=== PATIENT | female | born 2005 | race African-American/Black ===

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

== ENCOUNTER 2023-04-10 18:35 | Emergency (ER) | payer MEDICAID ==
[~2023-04-10] VITALS: Ht 160 cm; Wt 58.7 kg
--- NOTE | 2023-04-10 18:55 | ED GU-Female ---
General Chief Complaint: OB < 20 WEEKS Stated Complaint: 8 WEEKS / BLEEDING Nursing Triage Note: pt ambulates to rm 08 with c/o scant vaginal bleeding that started about 1700 tonight. pt reports she is approx 8 weeks , first . pt denies any pain or discomfort. Source: patient Exam Limitations: no limitations (KRYSTEN CALIXTO APRN) History of Present Illness Date Seen by Provider: Apr 10, 2023 Time Seen by Provider: 18:49 Initial Comments 17-year-old G2, P0 female at approximately 8 weeks and 4 days gestation presents to the ER with reports of vaginal bleeding starting today. She reports that it started out as light pink then has progressively darkened in color. She states that it has occurred approximately 5 times when wiping. Denies passing blood clots or heavy bleeding. Denies fever, abdominal pain, nausea, vomiting, vaginal discharge, dysuria. Last menstrual cycle was January 31. She reports that she had an ultrasound on March 25 that showed an intrauterine with a heartbeat at approximately 6 weeks 2 days. She reports that her previous ended in a miscarriage, states that she was only a couple weeks . (KRYSTEN CALIXTO APRN) Allergies and Home Medications Allergies Coded Allergies: No Known Drug Allergies (Unverified , 12/19/12) Patient Home Medication List Home Medication List Reviewed: Yes (KRYSTEN CALIXTO APRN) Acetaminophen/Codeine (Tylenol W/Codeine Elixir) 12.5 Ml Elix, 5 ML PO Q4H PRN Prescribed by: TERE PÉREZ on 12/19/122155 Cephalexin Hcl (Keflex Capsule) 250 Mg Cap, 250 MG PO Q6H Prescribed by: TERE PÉREZ on 12/19/122155 Clotrimazole (Clotrimazole) 1 % Cr, 45 GM VG DAILY Prescribed by: Krysten Grijalva on 04/10/232047 [[facility]] , (Reported) Entered as Reported by: ROCHELLE PINA on 12/19/121946 Review of Systems Review of Systems Constitutional: see HPI (KRYSTEN CALIXTO APRN) Past Duaacfc-Fqtqbd-Eipajp Hx Patient Social History Tobacco Use?: No Use of E-Cig and/or Vaping dev: No Substance use?: No Alcohol Use?: No (KRYSTEN CALIXTO APRN) Immunizations Up To Date Influenza Vaccine Up-to-Date: Yes; Up-to-Date (KRYSTEN CALIXTO APRN) Seasonal Allergies Seasonal Allergies: No (KRYSTEN CALIXTO APRN) Past Medical History Reproductive Disorders: No Sexually Transmitted Disease: No HIV/AIDS: No Adverse Reaction/Blood Tranf: No (KRYSTEN CALIXTO APRN) Family Medical History No Pertinent Family Hx (KRYSTEN CALIXTO APRN) Physical Exam Vital Signs Vital Signs - First Documented 04/10/23 18:44 Temp 36.0 Pulse 86 Resp 18 B/P (MAP) 114/86 (95) Pulse Ox 98 O2 Delivery Room Air (BRISEIDA,SMILEY K DO) Vital Signs Capillary Refill : Less Than 3 Seconds (KRYSTEN CALIXTO APRN) Height, Weight, BMI Height: '" Weight: lbs. oz. kg; 22.00 BMI Method: General Appearance: WD/WN, no apparent distress Neck: supple, normal inspection Cardiovascular: regular rate, rhythm Respiratory: lungs clear, normal breath sounds, no respiratory distress, no accessory muscle use Gastrointestinal: normal bowel sounds, non tender, soft Pelvic: normal external exam, no cerv. motion tender, no masses, discharge (Scant amount), vaginal bleeding (Small to moderate amount of blood in vaginal canal, no active bleeding), other (Os appears closed) Extremities: normal range of motion, normal inspection Neurologic/Psychiatric: alert, normal mood/affect Skin: normal color, warm/dry (KRYSTEN CALIXTO APRN) Progress/Results/Core Measures Suspected Sepsis SIRS Temperature: Pulse: 86 Respiratory Rate: 18 Laboratory Tests 04/10/23 19:00: White Blood Count 10.7 Blood Pressure 114 /86 Mean: 95 Laboratory Tests 04/10/23 19:00: Creatinine 0.67, Platelet Count 262, Total Bilirubin 1.0 (KRYSTEN CALIXTO APRN) Results/Orders Lab Results Laboratory Tests Test 04/10/23 18:45 04/10/23 19:00 04/10/23 19:30 Range/Units Urine Color YELLOW Urine Clarity CLEAR Urine pH 1.010 5-9 Urine Specific [place] 7.0 1.016-1.022 Urine Protein NEGATIVE NEGATIVE Urine Glucose (UA) NEGATIVE NEGATIVE Urine Ketones NEGATIVE NEGATIVE Urine Nitrite NEGATIVE NEGATIVE Urine Bilirubin NEGATIVE NEGATIVE Urine Urobilinogen 0.2 < = 1.0 MG/DL Urine Leukocyte Esterase NEGATIVE NEGATIVE Urine RBC (Auto) 1+ H NEGATIVE Urine RBC 5-10 H /HPF Urine WBC NONE /HPF Urine Squamous Epithelial Cells RARE /HPF Urine Crystals NONE /LPF Urine Bacteria NEGATIVE /HPF Urine Casts NONE /LPF Urine Mucus NEGATIVE /LPF Urine Culture Indicated NO White Blood Count 10.7 4.3-11.0 10^3/uL Red Blood Count 4.52 3.80-5.11 10^6/uL Hemoglobin 13.9 11.5-16.0 g/dL Hematocrit 41 35-52 % Mean Corpuscular Volume 90 80-99 fL Mean Corpuscular Hemoglobin 31 25-34 pg Mean Corpuscular Hemoglobin Concent 34 32-36 g/dL Red Cell Distribution Width 13.5 10.0-14.5 % Platelet Count 262 130-400 10^3/uL Mean Platelet Volume 10.6 9.0-12.2 fL Immature Granulocyte % (Auto) 0 % Neutrophils (%) (Auto) 56 42-75 % Lymphocytes (%) (Auto) 26 12-44 % Monocytes (%) (Auto) 8 0-12 % Eosinophils (%) (Auto) 8 0-10 % Basophils (%) (Auto) 1 0-10 % Neutrophils # (Auto) 6.0 1.8-7.8 10^3/uL Lymphocytes # (Auto) 2.8 1.0-4.0 10^3/uL Monocytes # (Auto) 0.9 0.0-1.0 10^3/uL Eosinophils # (Auto) 0.9 H 0.0-0.3 10^3/uL Basophils # (Auto) 0.1 0.0-0.1 10^3/uL Immature Granulocyte # (Auto) 0.0 0.0-0.1 10^3/uL Sodium Level 138 135-145 MMOL/L Potassium Level 3.1 L 3.6-5.0 MMOL/L Chloride Level 106 98-107 MMOL/L Carbon Dioxide Level 22 21-32 MMOL/L Anion Gap 10 5-14 MMOL/L Blood Urea Nitrogen 4 L 7-18 MG/DL Creatinine 0.67 0.60-1.30 MG/DL Estimat Glomerular Filtration Rate 129 BUN/Creatinine Ratio 6 Glucose Level 84 70-105 MG/DL Calcium Level 9.2 8.5-10.1 MG/DL Corrected Calcium 9.0 8.5-10.1 MG/DL Total Bilirubin 1.0 0.1-1.0 MG/DL Aspartate Amino Transf (AST/SGOT) 23 5-34 U/L Alanine Aminotransferase (ALT/SGPT) 32 0-55 U/L Alkaline Phosphatase 67 40-136 U/L Total Protein 7.0 6.4-8.2 GM/DL Albumin 4.3 3.2-4.5 GM/DL Human Chorionic Gonadotropin, Quant 69854 H <5 MIU/ML (BRISEIDA,SMILEY K DO) Medications Given in ED Current Medications Medications Dose Ordered Sig/Solomon Route Start Time Stop Time Status Last Admin Dose Admin Potassium Chloride 40 meq ONCE ONCE PO 04/10/23 20:15 04/10/23 20:16 DC 04/10/23 20:14 40 MEQ Rho Immune Globulin 300 mcg ONCE ONCE IM/IV 04/10/23 20:15 04/10/23 20:16 DC 04/10/23 20:43 300 MCG (BRISEIDA,SMILEY K DO) Vital Signs/I&O 04/10/23 04/10/23 18:44 20:58 Temp 36.0 Pulse 86 85 Resp 18 18 B/P (MAP) 114/86 (95) 122/84 Pulse Ox 98 98 O2 Delivery Room Air Room Air (BRISEIDA,SMILEY K DO) Vital Signs/I&O Capillary Refill : Less Than 3 Seconds (KRYSTEN CALIXTO APRN) Blood Pressure Mean: 95 Progress Note : Progress Note Patient seen and evaluated, resting comfortably in bed, no acute distress. Ba sed on exam and symptoms, differential diagnosis includes but is not limited to miscarriage, threatened miscarriage, subchorionic hemorrhage, UTI, pelvic infection. Work-up initiated included CBC, CMP, Rh type, hCG, UA, urine . We will perform a pelvic exam and obtain swabs for gonorrhea, chlamydia, and wet prep. 1930 pelvic exam completed. Small to moderate amount of blood in vaginal canal, no active bleeding, os is closed. Scant amount of discharge as well. Wet prep, gonorrhea, and chlamydia testing sent. 2044 Labs reviewed. CBC grossly normal. CMP shows decreased potassium 3.1. Oral potassium replacement ordered. hCG 95,311. This is within the correct range for her gestational age. Urinalysis shows 1+ RBCs, negative for infection. Patient is O negative. RhoGAM ordered. Wet prep shows moderate WBCs and few yeast cells. Negative for trichomonas and clue cells. Results discussed with patient. Will treat patient for yeast infection with vaginal cream. Patient instructed to call Dr. Oneal's office on Wednesday to schedule a follow-up appointment for serial hCGs and possible ultrasound. Patient is stable for discharge. Discharge instructions and return precautions provided. (KRYSTEN CALIXTO APRN) Departure Impression Primary Impression: Bleeding in early Additional Impression: Yeast infection Disposition: HOME, SELF-CARE Condition: Stable Departure-Patient Inst. Decision time for Depature: 20:45 (KRYSTEN CALIXTO APRN) Referrals: [facility] [place] Primary Care Physician Patient Instructions: Bleeding in Early ED Add. Discharge Instructions: Use the clotrimazole cream vaginally once a night for [address] Oneal's office on Wednesday to let them know that you were seen in the ER over the weekend for vaginal bleeding. They will need to repeat your hCG level, and they may do another ultrasound. Return for significant vaginal bleeding, if you are saturating a heavy pad once an hour for several hours, you develop dizziness or lightheadedness with the bleeding, or any other new, concerning, or worsening symptoms. All discharge instructions reviewed with patient and/or family. Voiced understanding. Scripts Clotrimazole (Clotrimazole) 1 % Cr 45 GM VG DAILY for 7 Days, #1 EA 0 Refills Prov: KRYSTEN CALIXTO APRN 04/10/23 ATTENDING PHYSICIAN NOTE: I WAS PHYSICALLY PRESENT ER PHYSICIAN, BUT I WAS NOT INVOLVED IN ANY DECISION MAKING OR ANY CARE OF THIS PATIENT, AND I AM NOT COLLABORATING PHYSICIAN. (SMILEY GOINS DO) Copy Copies To 1: EVERTON ONEAL MD, BRITTANY R APRN Apr 10, 2023 18:55 SMILEY GOINS DO Apr 11, 2023 03:12
[2023-04-10 19:01] LABS: CLARITY,URINE CLEAR; COLOR,URINE YELLOW; GLUCOSE, URINE (UA) NEGATIVE (NEGATIVE); KETONES,URINE NEGATIVE (NEGATIVE); PROTEIN,URINE NEGATIVE (NEGATIVE)
[2023-04-10 19:02] LABS: BACTERIA,URINE NEGATIVE /HPF; BILIRUBIN,URINE NEGATIVE (NEGATIVE); LEUKOCYTE ESTERASE ,URINE NEGATIVE (NEGATIVE); NITRITE,URINE NEGATIVE (NEGATIVE); SQUAMOUS EPITHELIAL CELL,UR RARE /HPF
[2023-04-10 19:22] LABS: BASOPHILS # (AUTO) 0.1 10^3/uL (0.0-0.1); BASOPHILS % (AUTO) 1 % (0-10); EOSINOPHILS # (AUTO) 0.9 10^3/uL (0.0-0.3); EOSINOPHILS % (AUTO) 8 % (0-10); HEMATOCRIT 41 % (35-52); HEMOGLOBIN 13.9 g/dL (11.5-16.0); LYMPHOCYTES # (AUTO) 2.8 10^3/uL (1.0-4.0); LYMPHOCYTES % (AUTO) 26 % (12-44); MEAN CORPUSCULAR HEMOGLOBIN 31 pg (25-34); MEAN CORPUSCULAR HGB CONC 34 g/dL (32-36); MEAN CORPUSCULAR VOLUME 90 fL (80-99); MEAN PLATELET VOLUME 10.6 fL (9.0-12.2); MONOCYTES # (AUTO) 0.9 10^3/uL (0.0-1.0); MONOCYTES % (AUTO) 8 % (0-12); NEUTROPHILS % (AUTO) 56 % (42-75); PLATELET COUNT 262 10^3/uL (130-400); WHITE BLOOD COUNT 10.7 10^3/uL (4.3-11.0)
[2023-04-10 19:52] LABS: ALBUMIN 4.3 GM/DL (3.2-4.5); CALCIUM 9.2 MG/DL (8.5-10.1); CREATININE SERUM 0.67 MG/DL (0.60-1.30); POTASSIUM 3.1 MMOL/L (3.6-5.0)
[2023-04-10] MEDS ORDERED: POTASSIUM CHLORIDE 20 MEQ TABLET PO ONE (20:15)
[2023-04-10] MEDS ORDERED: RHO(D) IMMUNE GLOBULIN 300 MCG/2 ML SYRINGE IM/IV ONE (20:15)
[2023-04-10] MEDS ORDERED: CLOT45CR28 VG (20:48)
[2023-04-10 20:58] VITALS: BP 122/84
== END 2023-04-10 20:59 | disposition home or self-care (01) ==
LOC: EDUNIT# 18:35 → ER 18:38
DX: O20.9 Hemorrhage in early pregnancy, unspecified (principal); O98.811 Other maternal infectious and parasitic diseases complicating pregnancy, first trimester; B37.31 Acute candidiasis of vulva and vagina; O99.281 Endocrine, nutritional and metabolic diseases complicating pregnancy, first trimester; E87.6 Hypokalemia; Z3A.08 8 weeks gestation of pregnancy
CPT/HCPCS: 36415; 80053; 81000; 84702; 84703; 85025; 86900; 86901; 87210; 87491; 87591; 96372; 96374